=== PATIENT | male | born 1995 | race Caucasian/White ===

== ENCOUNTER 2021-10-03 11:20 | Emergency (ER) | payer BC ==
[2021-10-03 11:30] VITALS: RESP 18; TEMP 99.4
[2021-10-03 11:59] LABS: Basophils % (A) 0 %; Eosinophils % (A) 1 %; HCT 48.8 % (39.0-53.0); HGB 16.3 gm/dL (13.0-17.5); Lymphocytes # (A) 0.9 k/uL (1.0-4.8); Lymphocytes % (A) 10 %; MCH 28.1 pg (25.0-35.0); MCHC 33.4 g/dL (31.0-37.0); MCV 84.1 fL (80.0-100.0); Mean Platelet Volume 6.9; Monocytes # (A) 0.4 k/uL (0-1.0); Monocytes % (A) 5 %; Neutrophils # (A) 7.9 k/uL (1.3-7.7); Neutrophils % (A) 85 %; Platelet Count 309 k/uL (150-450); RDW 12.1 % (11.5-15.5); WBC 9.4 k/uL (3.8-10.6)
--- NOTE | 2021-10-03 12:09 | XR ---
EXAMINATION TYPE: XR chest 1V portable DATE OF EXAM: 10/03/2021 Comparison: 05/06/2010 Clinical History: 26-year-old male tachycardia Findings: Heart normal size. Aorta and pulmonary vasculature within normal limits. Hazy densities related to la rge patient body habitus. No consolidation or pleural effusion. Impression: Limitations due to patient body habitus. No acute or process seen.
[2021-10-03 12:12] LABS: African American GFR (CKD) >90 (>60 ml/min/1.73 sqM); Anion Gap 11 mmol/L; Blood Urea Nitrogen 17 mg/dL (9-20); Calcium 9.3 mg/dL (8.4-10.2); Carbon Dioxide 21 mmol/L (22-30); Chloride 105 mmol/L (98-107); Glucose 93 mg/dL (74-99); Magnesium 1.8 mg/dL (1.6-2.3); Non-African American GFR(CKD) >90 (>60 ml/min/1.73 sqM); Potassium 4.1 mmol/L (3.5-5.1); Sodium 137 mmol/L (137-145)
--- NOTE | 2021-10-03 12:20 | ED ---
General Adult HPI - General Chief complaint: Arrhythmia/Palpitations Stated complaint: elevated heart rate Time Seen by Provider: 10/03/21 11:40 Source: patient Mode of arrival: ambulatory Limitations: no limitations - History of Present Illness Initial comments: Dictation was produced using [employer] dictation software. please excuse any grammatical, word or spelling errors. Chief Complaint: 26-year-old male presents with a heart rate History of Present Illness: 26-year-old male was brought to the emergency department by his nurse . Patient has been having high heart rates that he noticed since yesterday. He had some alcohol last night which she doesn't normally drink. He does take weight loss medications. He is been on these medications for approximately one year. He checked his heart rate yesterday noticed that he was having high heart rates. Patient has no other symptoms. No cough shortness of breath. No abdominal pain nausea. Patient states he does feel like his heart rate was fast last night. States that his heart rate feels at baseline currently. He does have a smart watch that shows that he's been having high heart rates for the last several days of the month. He's never checked his heart rate until last night. Patient takes lisinopril. Doesn't take any other medications. Patient was told that a side effect of his weight loss medication is high heart rate. Patient states she's lost 7 pounds in several months. The ROS documented in this emergency department record has been reviewed and confirmed by me. Those systems with pertinent positive or negative responses have been documented in the HPI. All other systems are other negative and/or noncontributory. PHYSICAL EXAM: General Impression: Alert and oriented x3, not in acute distress HEENT: Normocephalic atraumatic, extra-ocular movements intact, pupils equal and reactive to light bilaterally, mucous membranes moist. Cardiovascular: Tachycardic Chest: Able to complete full sentences, no retractions, no tachypnea Abdomen: abdomen soft, non-tender, non-distended, no organomegaly Musculoskeletal: Pulses present and equal in all extremities, no peripheral edema Motor: no focal deficits noted Neurological: CN II-XII grossly intact, no focal motor or sensory deficits noted Skin: Intact with no visualized rashes Psych: Normal affect and mood ED course: 26-year-old male presents emergency department for tachycardia. Sta isiah that he felt palpitations last night. He feels at baseline despite his heart rate being in the 120s. Vital signs upon arrival shows heart rate of 136, rest of vital signs within acceptable limits. He does have a low-grade temperature of 98.4 but does not have any infectious symptoms. Patient's apple watch was reviewed. He states he's been wearing his up watch diligently daily for the last several months. He is able to go back to his heart rate monitor for the last month which showed high heart rates. Laboratory evaluation obtained. CBC unremarkable. Coag panel is negative. D-dimer is negative. Metabolic panel shows bicarbonate 21. Rapid COVID-19 test negative. TSH is normal. Patient reevaluated at bedside at 1:00 PM finally stable medical condition. Still slightly tachycardic but is improved. He was given some anxiolytic medications because he did feel slightly anxious. Disposition options were discussed. Patient was given the option of being admitted for observation to see if there is improved heart rate versus being discharged. 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 He also has a smart watch and can monitor his heart rate. Patient told to avoid alcohol, aged cheeses, age deli meats and caffeine Cephus heart rate improves. Patient is also told to discontinue use of his weight loss medications because his likely culprit of his tachycardia. Patient is agreeable at discharge. He is told to return to the emergency department if he has any worsening symptoms. Patient and at the bedside are satisfied with dispo sition plan. EKG interpretation: Ventricular rate 186, sinus tachycardia,. Interval 154, QRS 80, QTC 422. No ID prolongation, no QTC prolongation, no ST or T-wave changes noted. Overall, this EKG is unremarkable - Related Data Home Medications Medication Instructions Recorded Confirmed No Known Home Medications 12/13/15 12/13/15 Allergies Allergy/AdvReac Type Severity Reaction Status Date / Time amoxicillin Allergy Unknown Verified 10/03/21 11:30 Review of Systems ROS Statement: Those systems with pertinent positive or pertinent negative responses have been documented in the HPI. ROS Other: All systems not noted in ROS Statement are negative. Past Medical History Past Medical History: No Reported History, Hypertension Additional Past Medical History / Comment(s): CLUB FEET History of Any Multi-Drug Resistant Organisms: None Reported Additional Past Surgical History / Comment(s): MULTIPLE SURGERIES TO RIGHT ANKL E, Past Psychological History: No Psychological Hx Reported Smoking Status: Never smoker Past Alcohol Use History: Occasional Past Drug Use History: None Reported General Exam Limitations: no limitations Course Vital Signs 10/03/21 10/03/21 11:26 11:39 Temperature 99.4 F Pulse Rate 136 H Pulse Rate [ 126 H Sitting Pulse Oximetery] Respiratory 18 Rate Blood Pressure 118/78 O2 Sat by Pulse 98 Oximetry Medical Decision Making - Lab Data Result diagrams: 10/03/21 11:51 10/03/21 11:51 Lab Results 10/03/21 10/03/21 10/03/21 Range/Units 11:51 11:51 11:51 WBC 9.4 (3.8-10.6) k/uL RBC 5.80 (4.30-5.90) m/uL Hgb 16.3 (13.0-17.5) gm/dL Hct 48.8 (39.0-53.0) % MCV 84.1 (80.0-100.0) fL MCH 28.1 (25.0-35.0) pg MCHC 33.4 (31.0-37.0) g/dL RDW 12.1 (11.5-15.5) % Plt Count 309 (150-450) k/uL MPV 6.9 Neutrophils % 85 % Lymphocytes % 10 % Monocytes % 5 % Eosinophils % 1 % Basophils % 0 % Neutrophils # 7.9 H (1.3-7.7) k/uL Lymphocytes # 0.9 L (1.0-4.8) k/uL Monocytes # 0.4 (0-1.0) k/uL Eosinophils # 0.0 (0-0.7) k/uL Basophils # 0.0 (0-0.2) k/uL PT 10.7 (9.0-12.0) sec INR 1.0 (<1.2) APTT 24.2 (22.0-30.0) sec D-Dimer (<0.60) mg/L FEU Sodium 137 (137-145) mmol/L Potassium 4.1 (3.5-5.1) mmol/L Chloride 105 (98-107) mmol/L Carbon Dioxide 21 L (22-30) mmol/L Anion Gap 11 mmol/L BUN 17 (9-20) mg/dL Creatinine 0.94 (0.66-1.25) mg/dL Est GFR (CKD-EPI)AfAm >90 (>60 ml/min/1.73 sqM) Est GFR (CKD-EPI)NonAf >90 (>60 ml/min/1.73 sqM) Glucose 93 (74-99) mg/dL Calcium 9.3 (8.4-10.2) mg/dL Magnesium 1.8 (1.6-2.3) mg/dL Troponin I (0.000-0.034) ng/mL TSH 1.600 (0.465-4.680) mIU/L Coronavirus (PCR) (Not Detectd) 10/03/21 10/03/21 10/03/21 Range/Units 11:51 11:51 11:51 WBC (3.8-10.6) k/uL RBC (4.30-5.90) m/uL Hgb (13.0-17.5) gm/dL Hct (39.0-53.0) % MCV (80.0-100.0) fL MCH (25.0-35.0) pg MCHC (31.0-37.0) g/dL RDW (11.5-15.5) % Plt Count (150-450) k/uL MPV Neutrophils % % Lymphocytes % % Monocytes % % Eosinophils % % Basophils % % Neutrophils # (1.3-7.7) k/uL Lymphocytes # (1.0-4.8) k/uL Monocytes # (0-1.0) k/uL Eosinophils # (0-0.7) k/uL Basophils # (0-0.2) k/uL PT (9.0-12.0) sec INR (<1.2) APTT (22.0-30.0) sec D-Dimer 0.37 (<0.60) mg/L FEU Sodium (137-145) mmol/L Potassium (3.5-5.1) mmol/L Chloride (98-107) mmol/L Carbon Dioxide (22-30) mmol/L Anion Gap mmol/L BUN (9-20) mg/dL Creatinine (0.66-1.25) mg/dL Est GFR (CKD-EPI)AfAm (>60 ml/min/1.73 sqM) Est GFR (CKD-EPI)NonAf (>60 ml/min/1.73 sqM) Glucose (74-99) mg/dL Calcium (8.4-10.2) mg/dL Magnesium (1.6-2.3) mg/dL Troponin I <0.012 (0.000-0.034) ng/mL TSH (0.465-4.680) mIU/L Coronavirus (PCR) Not Detected (Not Detectd) Disposition Clinical Impression: Tachycardia Disposition: HOME SELF-CARE Condition: Fair Instructions (If sedation given, give patient instructions): Heart Palpitations (ED) Is patient prescribed a controlled substance at d/c from ED?: No Referrals: Florencio Pineda MD [Primary Care Provider] - 1-2 days
[2021-10-03] MEDS: LORazepam 2 MG/ML INJ IV STA (12:22)
[2021-10-03] MEDS: SODIUM CHLORIDE 0.9% 1,000 ML IV STA (12:32)
[2021-10-03 12:36] LABS: Partial Thromboplastin Time 24.2 sec (22.0-30.0); Prothrombin Time 10.7 sec (9.0-12.0)
[2021-10-03 13:35] VITALS: BP 117/75; PULSE 115
== END 2021-10-03 13:39 | disposition home or self-care (01) ==
LOC: EC 11:20
DX: R00.0 Tachycardia, unspecified (principal); Z20.822 Contact with and (suspected) exposure to COVID-19; I10 Essential (primary) hypertension
CPT/HCPCS: 36415; 93005; 85379; 80048; 83735; 84443; 84484; 85025; 85610; 85730; 87635; 71045; 99285; 96374; 96361; J2060

== ENCOUNTER → 2024-05-10 | Outpatient (CLI) | payer BC ==
[2024-05-10 15:23] LABS: ALT 47 U/L (10-49); AST 41 U/L (14-35); Albumin 4.6 g/dL (3.8-4.9); Albumin/Globulin Ratio 1.84 Ratio (1.60-3.17); Alkaline Phosphatase 49 U/L (41-126); Blood Urea Nitrogen 17.3 mg/dL (9.0-27.0); Calcium 9.6 mg/dL (8.7-10.3); Carbon Dioxide 23.9 mmol/L (21.6-31.8); Chloride 104 mmol/L (96-109); Globulin 2.5 g/dL (1.6-3.3); Glucose 82 mg/dL (70-110); Potassium 4.1 mmol/L (3.5-5.5); Sodium 139 mmol/L (135-145); T4, Free (Free Thyroxine) 1.14 ng/dL (0.80-1.80); Total Bilirubin 0.9 mg/dL (0.3-1.2); Total Protein 7.1 g/dL (6.2-8.2)
== END | disposition home or self-care (01) ==
LOC: LABWHC1 08:12
PROVIDERS: ATTEND Internal Medicine
DX: E29.1 Testicular hypofunction (principal)
CPT/HCPCS: 36415; 80053; 84402; 84403; 84439; 84443

== ENCOUNTER → 2025-03-22 | Outpatient (CLI) | payer BC ==
[2025-03-22 15:55] LABS: LDL Cholesterol,Calculated 72.3 mg/dL (0.0-131.0); VLDL Calculation 8.52 mg/dL (5.00-40.00)
[2025-03-22 15:56] LABS: ALT 46 U/L (10-49); AST 31 U/L (14-35); Albumin 4.4 g/dL (3.8-4.9); Albumin/Globulin Ratio 1.76 Ratio (1.60-3.17); Alkaline Phosphatase 50 U/L (41-126); Blood Urea Nitrogen 19.9 mg/dL (9.0-27.0); Calcium 9.4 mg/dL (8.7-10.3); Carbon Dioxide 25.2 mmol/L (21.6-31.8); Chloride 102 mmol/L (96-109); Globulin 2.5 g/dL (1.6-3.3); Glucose 87 mg/dL (70-110); Potassium 4.2 mmol/L (3.5-5.5); Sodium 137 mmol/L (135-145); T4, Free (Free Thyroxine) 1.13 ng/dL (0.80-1.80); Total Bilirubin 0.9 mg/dL (0.3-1.2); Total Protein 6.9 g/dL (6.2-8.2)
== END | disposition home or self-care (01) ==
LOC: LABWHC1 08:12
PROVIDERS: ATTEND Internal Medicine
DX: E88.810 Metabolic syndrome (principal); E78.5 Hyperlipidemia, unspecified; E55.9 Vitamin D deficiency, unspecified
CPT/HCPCS: 36415; 80053; 80061; 82306; 84439; 84443